=== PATIENT | female | born 1955 | race Caucasian/White ===

== ENCOUNTER → 2016-08-30 | Outpatient (CLI) | payer OTHER ==
[~2016-08-30] MED LIST: APIDRA100 UNIT/1 SQ; ASPIR 8181 MG PO; BYDUREON P2 MG/0.65 SQ; FERROUS SULFAT324 MG PO; FLOVENT DISKUS50 MCG INH; GABAPENTIN600 MG PO; GLUCOPHAGE1000 MG PO; INDOMETHACIN50 MG PO; INVOKANA300 MG PO; ISOSORBIDE MON120 MG PO; LANTUS100 UNIT/1 SC; LANTUS100 UNIT/1 SQ; LIPITOR TAB 2020 MG PO; LISINOPRIL40 MG PO; MEDROL DOSEPAK 24 MG PO; METOCLOPRAMIDE10 MG PO; METOPROLOL SUC100 MG PO; METOPROLOL TAR100 MG PO; NEURONTIN 300300 MG PO; NORCO 5-325 TA1 EACH PO; NORVASC 5 MG TAB5 MG PO; NYSTATIN1 EAC1 PO; PLAVIX 75 MG TA75 MG PO; PROTONIX40 MG PO; RANEXA1000 MG PO; TIZANIDINE HCL2 M1 PO; TIZANIDINE HCL2 MG PO; VITAMIN C 250250 MG PO; VOLTAREN100 GM TP; ZANTAC150 MG PO; ZYRTEC10 MG PO
== END ==
LOC: RAD 12:21
DX: R07.9 Chest pain, unspecified (principal)
CPT/HCPCS: 71111

== ENCOUNTER → 2016-09-01 | Outpatient (CLI) | payer OTHER | LOC: KOH-I 13:30 | DX: S72.441A Displaced fracture of lower epiphysis (separation) of right femur, initial encounter for closed fracture (principal); M25.861 Other specified joint disorders, right knee; M25.461 Effusion, right knee | CPT/HCPCS: 73700 ==

== ENCOUNTER 2016-09-11 15:02 | Observation (INO) | payer OTHER ==
[~2016-09-11] VITALS: Ht 177.8 cm; Wt 93.0 kg
[~2016-09-11 15:02] MED LIST changes: -GABAPENTIN600 MG PO; -INDOMETHACIN50 MG PO; -MEDROL DOSEPAK 24 MG PO; -METOPROLOL TAR100 MG PO; -TIZANIDINE HCL2 MG PO
[2016-09-11 15:34] LABS: HEMOGLOBIN 15.5 gm/dl (12.3-15.3); RED BLOOD COUNT 5.13 M/UL (4.00-5.10); WHITE BLOOD COUNT 8.4 K/UL (4.5-11.0)
[2016-09-11 16:05] LABS: BUN/CREATININE RATIO 21 (0-10)
[2016-09-11] MEDS ORDERED: NEURONTIN 300300 MG PO (23:04)
[2016-09-11] MEDS ORDERED: TIZANIDINE HCL2 MG PO (23:07)
[2016-09-11] MEDS ORDERED: APIDRA100 UNIT/1 SQ (23:10)
[2016-09-11] MEDS ORDERED: LANTUS100 UNIT/1 SQ (23:10)
[2016-09-11] MEDS ORDERED: INDOMETHACIN50 MG PO (23:11)
[2016-09-11] MEDS ORDERED: GABAPENTIN600 MG PO (23:25)
[2016-09-11 23:31] LABS: BUN/CREATININE RATIO 30 (0-10)
[2016-09-12] MEDS ORDERED: METOPROLOL TAR100 MG PO (00:44)
[2016-09-12] MEDS ORDERED: MEDROL DOSEPAK 24 MG PO (13:39)
== END 2016-09-12 15:23 | disposition home or self-care (01) ==
LOC: ER1 15:02 → MED SURG 4 21:24 → ZEROF 21:24 → MED SURG 4 22:18
PROVIDERS: Emergency Medicine; ADMIT Hospitalist
DX: M94.0 Chondrocostal junction syndrome [Tietze] (principal); I25.10 Atherosclerotic heart disease of native coronary artery without angina pectoris; I10 Essential (primary) hypertension; E78.5 Hyperlipidemia, unspecified; K21.9 Gastro-esophageal reflux disease without esophagitis; E11.9 Type 2 diabetes mellitus without complications; Z86.711 Personal history of pulmonary embolism; Z79.82 Long term (current) use of aspirin; Z79.02 Long term (current) use of antithrombotics/antiplatelets; Z79.899 Other long term (current) drug therapy; Z95.5 Presence of coronary angioplasty implant and graft; Z90.49 Acquired absence of other specified parts of digestive tract
CPT/HCPCS: ECHO; 36415; 71010; 80048; 80053; 80061; 82550; 82553; 83735; 83874; 84484; 85025; 85379; 93005; 93306; 96361; 96372; 96374; 99285; G0378 ×2; J1650; J2270; J7040

== ENCOUNTER → 2021-11-30 | Outpatient (CLI) | payer OTHER ==
[~2021-11-30] MED LIST changes: +GABAPENTIN600 MG PO; +INDOMETHACIN50 MG PO; +MEDROL DOSEPAK 24 MG PO; +METOPROLOL TAR100 MG PO; +TIZANIDINE HCL2 MG PO
== END ==
LOC: KOH-I 14:15
DX: I82.401 Acute embolism and thrombosis of unspecified deep veins of right lower extremity (principal)
CPT/HCPCS: 93971